=== PATIENT | male | born 1965 | race American Indian/Alaskan Native ===

== ENCOUNTER 2016-12-16 10:10 | Outpatient (CLI) | payer MEDICAID ==
--- NOTE | 2016-12-18 08:54 | Cat Scan Report ---
FINAL REPORT EXAM: CT ABDOMEN PELVIS WO CON HISTORY: MICROSCOPIC HEMATURIA TECHNIQUE: Noncontrast CT of the abdomen and pelvis performed. No IV or gastrointestinal contrast was administered. Coronal and sagittal reformatted images were obtained. PRIORS: None. FINDINGS: There is trace left pleural fluid and cardiomegaly. The aorta is diffusely ectatic/aneurysmal. Descending thoracic aorta measures about 3.7 cm diameter. Upper abdominal aorta is aneurysmal measuring about 4.3 cm diameter. Mid to distal aorta measures about 3.6 cm AP by 4.0 cm transverse. There are iliac artery aneurysms as well. Left common iliac artery diameter is about 2.4 cm. Right common iliac artery diameter is about 1.5 cm. The left kidney is atrophic. There are several small left intrarenal calculi. There is no hydronephrosis or evidence of obstructive uropathy. Within the limitations of a non-enhanced study, the visualized liver, spleen, pancreas, adrenal glands and right kidney demonstrate no significant abnormalities. There is no abdominal aortic aneurysm. There is no evidence of intestinal obstruction. The appendix is not specifically identified. There is no free intraperitoneal air. There are no abnormal fluid collections seen. There is no abnormal pelvic mass or fluid collections seen. IMPRESSION: Multiple small nonobstructing left intrarenal calculi seen. No hydronephrosis or obstructive uropathy. Note that left kidney is atrophic as well. Diffusely ectatic/aneurysmal of aorta. Proximal abdominal aorta is most aneurysmal measuring 4.3 cm diameter. Descending thoracic aorta measures 3.7 cm diameter well mid to distal abdominal aorta measures 4.0 cm. Left in right common iliac artery aneurysm are 2.4 and 1.5 cm respectively. There is cardiomegaly and trace left pleural fluid.
== END 2016-12-16 10:11 | disposition home or self-care (01) ==
LOC: CT 10:10
PROVIDERS: ATTEND Urology
DX: N20.0 Calculus of kidney (principal); N26.1 Atrophy of kidney (terminal); I51.7 Cardiomegaly; I71.4 Abdominal aortic aneurysm, without rupture
CPT/HCPCS: 74176